=== PATIENT | female | born 1945 | race Caucasian/White ===

== ENCOUNTER 2022-09-16 12:49 | Outpatient (AMB) | payer MEDICARE, SELFPAY ==
--- NOTE | 2022-09-16 13:39 | MHC.AMDMED ---
Intake Intake Visit Reasons: DM2 Lead Press Operator Required: No Accompanied by: Spouse HPI Comprehensive Diabetes Asmnt General Diabetes type type 2 Most Recent Diabetes Results: No Data to Display Assessment & Plan Assessment & Plan (1) Diabetes mellitus: Code(s): E11.9 - Type 2 diabetes mellitus without complications Plan: Learning objectives: The patient was provided with verbal and written education on the following topics as outlined below. The patient met all learning objectives and was able to verbalize understanding and provide teach back of education topics discussed . The patient was provided with the opportunity to ask questions and all questions were answered. Patient Assessment Assess patient education level/literacy/barriers Patient questions/concerns, patient reports she had a stroke 2019, this is left her with some cognitive deficit which makes it harder for her to organized her daily life. She and her reports she frequently forgets to take medications, does not consistently check glucose levels. Was prescribed Mounjaro but has not started due to high co-pay. Currently has Annel 2 sensors but does not have reader. Could down download eliot on smart phone because patient did not know apple ID. What is Diabetes? Pathophysiology How the body produces and uses insulin Identify type of DM Risk factors Signs of Diabetes Brief overview of Diabetes Management Monitoring blood sugar Following a meal plan Regular exercise Maintaining a healthy weight Taking medication as needed Members of the care team (PCP, RN, MA, RD, CDE, electrical instrument repairer) Blood glucose monitoring When/how often to test Target blood sugar ranges Patient did not bring meter to today's visit Introduction to Nutrition Importance of healthy diet in managing DM Diet is personalized to individual preference Review patient?s regular diet/food preferences Who prepares meals/does food shopping/ Dining out?/ Barriers? How diet effects glucose Eating 3 balanced meals a day with small, healthy snacks between meals Review food groups Carbohydrates: What is a carbohydrate/Which food/food groups are considered carbohydrates Effect of carbohydrates on blood glucose Portion sizes Reading food labels Basic carb counting (if applicable per nursing assessment) Plate method Meal planning Recommendations: Follow plate method, consistent carbs and read nutritional labels. Smart Goal: Call electrical instrument repairer get prescription for freestyle Annel reader, and Mounjaro alternative Educational Materials: The patient was provided with the following written educational materials: Planning Healthy Meals Handout Patient Response to instructions: Comprehension of Instructions: Fair Readiness to make changes: Contemplation How confident they feel about making changes: fair Patient Instructions: Test blood sugar as directed; Fasting and 2hpp largest meal. Watch trends in results. Utilize results and to assess how food, physical activity and medications affect blood sugar results. Bring glucometer or CGM to next visit. Be knowledgeable about diabetes medication, its action, side effects, efficacy, toxicity, prescribed dosage, appropriate timing and frequency of administration, effect of missed and delayed doses and instructions for storage, travel and safety. Coding Level of Care Code Est Pt Level 1 (45693) Diagnoses Diabetes mellitus E11.9
== END 2022-09-16 14:12 | disposition home or self-care (01) ==
PROVIDERS: PCP Internal Medicine Medical Oncology; Referring Provider Internal Medicine Medical Oncology; Visit Provider Registered Nurse Diabetes Educator
DX: E11.9 Type 2 diabetes mellitus without complications (principal)

== ENCOUNTER → 2022-09-16 12:49 | Outpatient (BNVA) | payer MEDICARE, SELFPAY | PROVIDERS: Visit Provider Registered Nurse Diabetes Educator | DX: E11.9 Type 2 diabetes mellitus without complications (principal) | CPT/HCPCS: 99211 ==

== ENCOUNTER 2024-05-12 14:21 | Outpatient (REF) | payer MEDICARE, SELFPAY ==
--- NOTE | ~2024-05-12 | FL_ITS ---
EXAMINATION: Modified Barium Swallow CLINICAL INFORMATION: Dysphagia COMPARISON: None TECHNIQUE: Modified barium swallow was performed under lateral fluoroscopy with patient in standing position. Barium mixed with solids and liquids of different consistencies was administered by the speech pathologist. Examination was recorded in the fluoroscopy suite. FINDINGS: There was flash laryngeal penetration with thin liquids without glottic or subglottic aspiration. No significant pooling identified. FLUOROSCOPY TIME: 1 minute 33 seconds Number of Spot Images: N/A DOSE AREA PRODUCT: 961.6 uGy-m2 (microgray-meter squared) FL/FL Modified Barium Swallow IMPRESSION: Flash laryngeal penetration identified with thin liquids without glottic or subglottic aspiration. Please refer to the full speech pathologist report to follow. Electronically signed by: Kehinde Elias MD 05/12/2024 03:15 PM EDT
--- OUTSIDE RECORDS SUMMARY | 2024-05-12 17:16 | XMS_ITS ---
Author Organization Calvin Yousif III, MD Address [address] [place] [address] Care Team Providers Care Parachute Cushion Installer Name Role Phone Calvin Yousif Primary Care Provider Allergies Allergen (clinical drug ingredient) Drug/Non Drug Allergy documented on EMR Reaction Allergy Type Onset Date Status Penicillin Unknown Drug Allergy Active vancomycin Vancomycin HCl throat closes/itchy Drug Allergy Active clindamycin Clindamycin HCl Unknown Drug Allergy Active Reason For Referral Reason Consult and Treat Aspirating Saliva after Stroke Diagnosis 1 Difficulty swallowin g (R13.10) Referral Organization Calvin Yousif III, MD Referring Provider First Name Calvin Referring Provider Last Name Benja Referring Provider Speciality Internal M edicine Referred Provider [facility] er, Speech and Hearing Referred Provider Specialty Unknown General Notes DKalyn 05/10/2024 10:08:11 AM > Referral faxed with progress note Referral Priority Routine REASON FOR VISIT [facility] Weight loss program, Dementia, History of stroke, History of B12 deficiency, Diabetes mellitus, Sleep apnea Medications Medication SIG (Take, Route, Frequency, Duration) Notes Start Date End Date Status FreeStyle Lite - Check glucose Friday , friday, Friday Fasting 3 times a day 02/25/2020 Active Mounjaro 2.5 MG/0.5ML INJECT 1 PEN EVERY WEEK DIRECTED Subcutaneous Active Metoprolol Tartrate 25 MG TAKE 1 TABLET BY MOUTH TWICE A DAY WITH FOOD Active Vitamin D-[address] 25 MCG (1000 UT) 1 tablet Orally Once a day 11/19/2023 Active FreeStyle Lite Test - Check glucose , Friday, Friday In Vitro 3 times a day, Fasting 02/25/2020 Active buPROPion HCl ER (SR) 100 MG 1 tablet in the morning Orally Once a day 06/25/2021 Active Aspirin Adult Low Dose 81 MG 1 tablet Orally Once a day A ctive Vitamin B 12 100 MCG 1 tablet Orally Once a day Active Lisinopril 2.5 MG TAKE 1 TABLET BY GINO TH EVERY DAY Active Eliquis 5 MG TAKE 1 TABLET BY GINO TH TWICE A DAY Oral Active Jardiance 10 MG TAKE 1 TABLET BY GINO TH EVERY DAY Active Atorvastatin Calcium 80 MG TAKE 1 TABLET BY MOUTH EVERY DAY Active Social History Tobacco Use: Social History Observation Description Date Details (start date - stop date) Never Smoker NA - NA Sex Assigned At : Social History Observation Description Sex Assigned At Female Tobacco Use/Smoking Question Answer Notes Patient is a nonsmoker Additional Findings: Tobacco Non-User Aggressive non-smoker Problems Problem Type SNOMED Code ICD Code Onset Dates Problem Status W/U Status Risk Notes Problem Difficulty swallowing ([id number]) Difficulty swallowing (R13.10) Active confirmed This is been present since her stroke. A barium swallow and speech therapy will be considered . Vital Signs Temperature 98.2 degrees Fahrenheit 05/08/19 25 Blood pressure systolic 125 mm Hg 05/08/19 25 Blood pressure diastolic 67 mm Hg 025 Heart Rate 72 /min 05/07/2024 Height 62 in 05/07/2024 Weight 156 lbs 05/07/2024 BMI 28.53 kg/m2 05/07/2024 Encounters Encounter Location Date Provider Diagnosis Calvin Yousif III, MD [address] [place] [address] [address], [place] [id number] 05/07/2024 Calvin Yousif Vitamin B 12 deficiency E53.8 ; Dementia without behavioral disturbance, unspecified dementia type F03.90 ; Difficulty swallowing R13.10 ; Lactose intolerance E73.9 ; DJD (degenerative joint disease) M19.90 ; Embolic stroke involving cerebral artery I63.40 ; Overweight E66.3 ; Sleep apnea in adult G47.30 and Type 2 diabetes mellitus without complication, without long-term current use of insulin E11.9 Assessments Encounter Date Diagnosis (ICD Code) Assessment Notes Treatment Notes Treatment Clinical Notes 05/07/2024 Vitamin B 12 deficiency (ICD-10 - E53.8) She was continued on her vitamin B12 supplement.The B12 level on April 27, 2024 was 1010. 05/07/2024 Dementia without behavioral disturbance, unspecified dementia type (ICD-10 - F03.90) Her memory is stable. Her family says that she often refuses to take medication. She is currently declining to take her antidepressant. 05/07/2024 Difficulty swallowing (ICD-10 - R13.10) This is been present since her stroke. A barium swallow and speech therapy will be considered. 05/07/2024 Lactose intolerance (ICD-10 - E73.9) She will occasionally uses Lactaid. This problem is well controlled. She has not had a problem with abdominal distress or diarrhea or pain recently. She is avoiding lactose and dairy products. 05/07/2024 DJD (degenerative joint disease) (ICD-10 - M19.90) Her arthritis is monitor and assess mostly her hands and shoulders and Tylenol to relieve the pain with some success. 05/07/2024 Embolic stroke involving cerebral artery (ICD-10 - I63.40) Neurology followup has been arranged. She will continue on aspirin and clopidogrel. An echocardiogram has been scheduled. Close followup was arranged. 05/07/2024 Overweight (ICD-10 - E66.3) She has gained 2 pounds. She will resume the morning Gyro when it is available from the pharmacy. 05/07/2024 Sleep apnea in adult (ICD-10 - G47.30) At the reported request of neurology. She will be reevaluated for CPAP. 05/07/2024 Type 2 diabetes mellitus without complication, without long-term current use of insulin (ICD-10 - E11.9) Her diabetes is controlled with a hemoglobin A1c of 6.7. She has gained 2 pounds and we discussed weight reduction. We reviewed the elements of a diabetic weight loss diet. We made a plan to lose weight at a rate of one half of a pound per week. Plan Of Treatment Medication Medication Name Sig Start Date Stop Date Notes FreeStyle Lite - Check glucose Friday , friday, Friday Fasting 3 times a day 02/25/2020 Mounjaro 2.5 MG/0.5ML INJECT 1 PEN EVERY WEEK DIRECTED Subcutaneous Metoprolol Tartrate 25 MG TAKE 1 TABLET BY MOUTH TWICE A DAY WITH FOOD Vitamin D-[address] 25 MCG (1000 UT) 1 tablet Orally Once a day 11/19/2023 FreeStyle Lite Test - Check glucose , Friday, Friday In Vitro 3 times a day, Fasting 02/25/2020 buPROPion HCl ER (SR) 100 MG 1 tablet in the morning Orally Once a day 06/25/2021 Aspirin Adult Low Dose 81 MG 1 tablet Orally Once a day Vitamin B 12 100 MCG 1 tablet Orally Once a day Lisinopril 2.5 MG TAKE 1 TABLET BY GINO TH EVERY DAY Eliquis 5 MG TAKE 1 TABLET BY GINO TH TWICE A DAY Oral Jardiance 10 MG TAKE 1 TABLET BY GINO TH EVERY DAY Atorvastatin Calcium 80 MG TAKE 1 TABLET BY MOUTH EVERY DAY Pending Test Test Name Order Date XR BARIUM SWALLOW, MODIFIED VIDEO 2024 Referrals Referral Date Details 05/07/2024 05/07/2024, Consult and Treat Aspirating Saliva after Stroke, [facility] Next Appt Details Follow Up: 2 Months, Reason: OV Provider Name:Calvin Yousif, 06/09/2024 03:00:00 PM, [address] [place] [address] [address], [place], [id number], Provider Name:Calvin Yousif, 11/22/2024 04:00:00 PM, [address] [place] [address] [address], [place], [id number], Progress Notes * Faina MORALES ADOB: [birth year] (78 yo F)Acc No.[id number]:05/07/2024 Progress Notes Patient:?Jacklyn MORALESricjorge Seaman Provider:?Calvin Yousif MD :1945???Age:78 Y???Sex:Female D ate:05/07/2024 Address:[address], [place], [id number] Subjective: * Chief Complaints: * ???Mounjaro Weight loss prog ramDementiaHistory of strokeHistory of B12 deficiencyDiabetes mellitusSleep apnea * HPI: ???COVID-19 Screening:?She returns to review multiple medical issues.? She has been taking Mounjaro for weight loss.? The pharmacy is currently unable to fill the prescription.? She has gained 2 pounds since her last visit.? Her fasting glucose levels the last 2 days were 1100 and 1:15.? She denies any pain shortness of breath or dysuria.? She was awake and alert and happy today. There was no neurological deficit.? Her dementia is unchanged.? She continues living at home with her .We will continue to see her monthly intervals. ?Questions?Have you had any new onset fever, chills, cough, congestion, sore throat, shortness of breath, muscle aches??No * ROS:?General/Constitutional:?pain?only normal aches and pains.?Chills?denies.?Fatigue?admits.?Fever?denies.?ENT:?Decreased hearing?denies.?Respiratory:?Cough?denies.?Cardiovascular:?Chest pain with exertion?denies.?Dyspnea on exertion?denies.?Shortness of breath?denies.?Gastrointestinal:?Constipation?occasional.?Decreased appetite?denies.?Diarrhea?denies.?Heartburn?occasional.?Nausea?denies.?Rectal bleeding?denies.?Vomiting?denies.?Hematology:?bruising?denies.?petechiae?denies.?Swollen glands?none have been noted.?Genitourinary:?Frequent urination?denies.?Musculoskeletal:?Muscle aches?denies.?Painful joints?denies.?Sciatica?denies.?Weakness?denies.?Skin:?Itching?denies.?Rash?denies.?Skin lesion(s)?denies.?Neurologic:?Difficulty speaking?denies.?Dizziness?denies.?Headache?denies.?Low back pain?denies.?Psychiatric:?Depressed mood?denies.? * Medical History:? * Surgical History:?lumbar dis c surgery 1994appendectomy age 5 colonoscopy, Esme Hooks right eye cataract 11/2021Lumpectomy left breast Left eye Cataract 04/2022No history * Hospitalization/Major Diagno stic Procedure:?CVA 02/2019No history * Family History:?Father: dece ased 76 yrs, prostate cancer, diagnosed with Cancer.?Mother: alive 87 yrs, hypertension, hyperlipidemia,back problems, stroke, diagnosed with HTN, Hyperlipidemia.?2 brother(s) , 1 sister(s) - healthy. 1 son(s) , 1 daughter(s) - healthy. .? A son is diabetic. * Social History:?Tobacco Use:?Tobacco Use/Smoking?Patient is a?nonsmoker ?Additional Findings: Tobacco Non-User?Aggressive non-smoker ???She is with children and is retired. She was born in [place], [place]. Her son is Armaan. Her daughter Ruth teaches kindergarten. * Medications:?TakingAtorvasta tin Calcium 80 MG Tablet TAKE 1 TABLET BY MOUTH EVERY DAY Jardiance 10 MG Tablet TAKE 1 TABLET BY MOUTH EVERY DAY Lisinopril 2.5 MG Tablet TAKE 1 TABLET BY MOUTH EVERY DAY Vitamin B 12 100 MCG Lozenge 1 tablet Orally Once a day Aspirin Adult Low Dose 81 MG Tablet Delayed Release 1 tablet Orally Once a day buPROPion HCl ER (SR) 100 MG Tablet Extended Release 12 Hour 1 tablet in the morning Orally Once a day Metoprolol Tartrate 25 MG Tablet TAKE 1 TABLET BY MOUTH TWICE A DAY WITH FOOD Mounjaro 2.5 MG/0.5ML Solution Pen-injector INJECT 1 PEN EVERY WEEK DIRECTED Subcutaneous FreeStyle Lite - Device Check glucose Friday, friday, Friday Fasting 3 times a day FreeStyle Lite Test - Strip Check glucose Friday, Friday, Friday In Vitro 3 times a day, Fasting Vitamin D-[address] 25 MCG (1000 UT) Tablet 1 tablet Orally Once a day Eliquis 5 MG Tablet TAKE 1 TABLET BY MOUTH TWICE A DAY Oral Medication List reviewed and reconciled with the patientTaking Atorvastatin Calcium 80 MG Tablet TAKE 1 TABLET BY MOUTH EVERY DAY Taking Jardiance 10 MG Tablet TAKE 1 TABLET BY MOUTH EVERY DAY Taking Lisinopril 2.5 MG Tablet TAKE 1 TABLET BY MOUTH EVERY DAY Taking Vitamin B 12 100 MCG Lozenge 1 tablet Orally Once a day Taking Aspirin Adult Low Dose 81 MG Tablet Delayed Release 1 tablet Orally Once a day Taking buPROPion HCl ER (SR) 100 MG Tablet Extended Release 12 Hour 1 tablet in the morning Orally Once a day Taking Metoprolol Tartrate 25 MG Tablet TAKE 1 TABLET BY MOUTH TWICE A DAY WITH FOOD Taking Mounjaro 2.5 MG/0.5ML Solution Pen-injector INJECT 1 PEN EVERY WEEK DIRECTED Subcutaneous Taking FreeStyle Lite - Device Check glucose Friday, friday, Friday Fasting 3 times a day Taking FreeStyle Lite Test - Strip Check glucose Friday, Friday, Friday In Vitro 3 times a day, Fasting Taking Vitamin D-[address] 25 MCG (1000 UT) Tablet 1 tablet Orally Once a day Taking Eliquis 5 MG Tablet TAKE 1 TABLET BY MOUTH TWICE A DAY Oral Medication List reviewed and reconciled with the patient * Allergies:?Vancomycin HCl: t hroat closes/itchyClindamycin HClPenicillinno[Allergies Verified] Objective: * Vitals:?Ht: 62, Wt:156, BMI: 28.53, BP:125/67, HR:72, Temp:98.2, Ht-cm: 157.48, Wt-k.76. * Examination: ???General Examination: ?GENERAL APPEARANCE:?pleasant, well nourished, well developed, in no acute distress, calm and relaxed, overweight, woman.?HEAD:?atraumatic, normocephalic.?EYES:?eomi, perrla, anicteric, conjugate.?EARS:?normal.?NOSE:?septum intact.?ORAL CAVITY:?normal, unremarkable.?NECK/THYROID:?no jugular venous distention, no carotid bruit, thyroid normal.?LYMPH NODES:?no enlarged lymph nodes,spleen normal.?SKIN:?no suspicious lesions, anicteric.?HEART:?no clicks, gallops, murmurs, or rubs, regular rhythm, S1, S2 normal, no s3, or vascular bruits.?LUNGS:?clear to auscultation .?BREASTS:?Not examined.?ABDOMEN:?bowel sounds normal, no ascites, no organomegaly, no mass, overweight.?RECTAL EXAM:?not examined.?MUSCULOSKELETAL:?extremities unremarkable, no clubbing, cyanosis or edema.?PERIPHERAL PULSES:?normal.?NEUROLOGIC:?alert and oriented, cranial nerves 2-12 grossly intact, deep tendon reflexes 2+ symmetrical, motor strength normal upper and lower extremities, sensory exam intact, Moderate memory loss.?PSYCH:?alert, oriented, Pleasant,.? Assessment: * Assessment: 1.?Dementia without behavior al disturbance, unspecified dementia type - F03.90 (Primary)???Notes :Her memory is stable. Her family says that she often refuses to take medication. She is currently declining to take her antidepressant.???2.?Vitamin B 12 deficiency - E53.8???Notes :She was continued on her vitamin B12 supplement.The B12 level on April 27, 2024 was 1010.???3.?Difficulty swallowing - R13.10???Notes :This is been present since her stroke.? A barium swallow and speech therapy will be considered.???4.?Lactose intolerance - E73.9???Notes :She will occasionally uses Lactaid. This problem is well controlled. She has not had a problem with abdominal distress or diarrhea or pain recently. She is avoiding lactose and dairy products.???5.?DJD (degenerative joint disease) - M19.90???Notes :Her arthritis is monitor and assess mostly her hands and shoulders and Tylenol to relieve the pain with some success.???6.?Embolic stroke involving cerebral artery - I63.40???Notes :Neurology followup has been arranged. She will continue on aspirin and clopidogrel. An echocardiogram has been scheduled. Close followup was arranged.???7.?Overweight - E66.3???Notes :She has gained 2 pounds.? She will resume the morning Gyro when it is available from the pharmacy.???8.?Sleep apnea in adult - G47.30???Notes :At the reported request of neurology. She will be reevaluated for CPAP.???9.?Type 2 diabetes mellitus without complication, without long-term current use of insulin - E11.9???Notes :Her diabetes is controlled with a hemoglobin A1c of 6.7. She has gained 2 pounds and we discussed weight reduction. We reviewed the elements of a diabetic weight loss diet. We made a plan to lose weight at a rate of one half of a pound per week.??? Plan: * Treatment: 2.?Vitamin B 12 deficiency? Continue Atorvastatin Calcium Tablet, 80 MG, TAKE 1 TABLET BY MOUTH EVERY DAY;?Continue Jardiance Tablet, 10 MG, TAKE 1 TABLET BY MOUTH EVERY DAY;?Continue Lisinopril Tablet, 2.5 MG, TAKE 1 TABLET BY MOUTH EVERY DAY;?Continue Vitamin B 12 Lozenge, 100 MCG, 1 tablet, Orally, Once a day;?Continue Aspirin Adult Low Dose Tablet Delayed Release, 81 MG, 1 tablet, Orally, Once a day; Continue buPROPion HCl ER (SR) Tablet Extended Release 12 Hour, 100 MG, 1 tablet in the morning, Orally, Once a day;?Continue Metoprolol Tartrate Tablet, 25 MG, TAKE 1 TABLET BY MOUTH TWICE A DAY WITH FOOD;?Continue Mounjaro Solution Pen-injector, 2.5 MG/0.5ML, INJECT 1 PEN EVERY WEEK DIRECTED, Subcutaneous;?Continue FreeStyle Lite Device, -, Check glucose Friday, friday, Friday Fasting, 3 times a day;?Continue FreeStyle Lite Test Strip, -, Check glucose Friday, Friday, Friday, In Vitro, 3 times a day, Fasting.?? 3.?Difficulty swallowing?Imaging: XR BARIUM SWALLOW, MODIFIED VIDEO? Referral To:[facility]??Unknown ?Reason:Consult and Treat Aspirating Saliva after Stroke 4.?Others? Continue Vitamin D-[address] Tablet, 25 MCG (1000 UT), 1 tablet, Orally, Once a day.?? * Procedure Codes:? * Preventive Medicine:? ??Counseling:?Care goal follow-up plan:?Counseling for abnormal BMI given?Yes ?Above Normal BMI Follow-up?Dietary management education, guidance, and counseling, Dietary needs education ??DM Care Plan:?Patient Lifestyle Goals?Patient wants to be able to manage diabetes without too much effort.?Treatment Goals?Blood Sugars less than < 115, HbA1C < 7.0.?Barriers?no barriers.?Self-Managment Goals?Take blood sugars twice daily and keep a log. Bring log in to next appointment, Increase exercise to 3 times a week for 30 mins.? * Follow Up:?2 Months (Reason: OV) * Images: * Sign off status: Completed true * Provider:?Calvin Yousif MD Date:?04/18 Generated for Yanna campbell/Olivia/Sebasitting on:?05/12/2024 05:16 PM EDT History and Physical Notes * HPI (History of Present Illness) Category Sub-Category Detail Notes COVID-19 Screening Questions Have you had any new onset fever, chills, cough, congestion, sore throat, shortness of breath, muscle aches?: No Examination Category Sub-Category Detail Notes General Examination GENERAL APPEARANCE: pleasant , well nourished, well developed, in no acute distress, calm and relaxed, overweight, woman HEAD: atraumatic, normocep halic EYES: eomi, perrla, anicte mali, conjugate EARS: normal NOSE: septum intact NECK/THYROID: no jugular venous di stention, no carotid bruit, thyroid normal HEART: no clicks, gallops, murmurs, or rubs, regular rhythm, S1, S2 normal, no s3, or vascular bruits LUNGS: clear to auscultatio n ABDOMEN: bowel sounds normal, no ascites, no organomegaly, no mass, overweight NEUROLOGIC: alert and oriented, cranial nerves 2-12 grossly intact, deep tendon reflexes 2+ symmetrical, motor strength normal upper and lower extremities, sensory exam intact, Moderate memory loss SKIN: no suspicious lesion s, anicteric PERIPHERAL PULSES: normal BREASTS: Not examined MUSCULOSKELETAL: extremities unremark able, no clubbing, cyanosis or edema LYMPH NODES: no enlarged lymph no mercy,spleen normal RECTAL EXAM: not examined PSYCH: alert, oriented, Ple asant, ORAL CAVITY: normal, unremarkable Consultation Request Notes Referral Date Referring Provider Referred Provider Not dominic 05/07/2024 Calvin Yousif [facility], [facility] Consult and Treat Aspirating Saliva after Stroke
--- OUTSIDE RECORDS SUMMARY | 2024-05-12 17:16 | XMS_ITS ---
Author Organization Calvin Yousif III, MD Address [address] [place] [address] Care Team Providers Care Technology Recruiter Name Role Phone Calvin Yousif Primary Care Provider Allergies Allergen (clinical drug ingredient) Drug/Non Drug Allergy documented on EMR Reaction Allergy Type Onset Date Status Penicillin Unknown Drug Allergy Active vancomycin Vancomycin HCl throat closes/itchy Drug Allergy Active clindamycin Clindamycin HCl Unknown Drug Allergy Active REASON FOR VISIT Sleep apnea, Mounjaro weight loss progra, Recent strokes, Vitamin B12 deficiency, Dementia, Diabetes Medications Medication SIG (Take, Route, Frequency, Duration) Notes Start Date End Date Status Jardiance 10 MG TAKE 1 TABLET BY GINO TH EVERY DAY Active Lisinopril 2.5 MG TAKE 1 TABLET BY GINO TH EVERY DAY Active Vitamin B 12 100 MCG 1 tablet Orally Once a day Active Aspirin Adult Low Dose 81 MG 1 tablet Orally Once a day A ctive buPROPion HCl ER (SR) 100 MG 1 tablet in the morning Orally Once a day 06/25/2021 Active FreeStyle Lite - Check glucose Friday , friday, Friday Fasting 3 times a day 02/25/2020 Active FreeStyle Lite Test - Check glucose , Friday, Friday In Vitro 3 times a day, Fasting 02/25/2020 Active Vitamin D-[address] 25 MCG (1000 UT) 1 tablet Orally Once a day 11/19/2023 Active Atorvastatin Calcium 80 MG TAKE 1 TABLET BY MOUTH EVERY DAY Active Mounjaro 2.5 MG/0.5ML INJECT 1 PEN EVERY WEEK DIRECTED Subcutaneous Active Metoprolol Tartrate 25 MG TAKE 1 TABLET BY MOUTH TWICE A DAY WITH FOOD Active Social History Tobacco Use: Social History Observation Description Date Details (start date - stop date) Never Smoker NA - NA Sex Assigned At : Social History Observation Description Sex Assigned At Female Tobacco Use/Smoking Question Answer Notes Patient is a nonsmoker Additional Findings: Tobacco Non-User Aggressive non-smoker Vital Signs Temperature 98.6 degrees Fahrenheit 03/26/19 25 Blood pressure systolic 129 mm Hg 03/26/19 25 Blood pressure diastolic 68 mm Hg 025 Heart Rate 75 /min 03/26/2024 Height 62 in 03/26/2024 Weight 154 lbs 03/26/2024 BMI 28.16 kg/m2 03/26/2024 Encounters Encounter Location Date Provider Diagnosis Calvin Yousif III, MD [address] [place] [address] [place] [address] 03/26/2024 Calvin Yousif Vitamin B 12 deficie ncy E53.8 ; Cerebrovascular accident (CVA), unspecified mechanism I63.9 ; Type 2 diabetes mellitus without complication, without long-term current use of insulin E11.9 ; Dementia without behavioral disturbance, unspecified dementia type F03.90 ; Lactose intolerance E73.9 ; Eczema L30.9 and Sleep apnea in adult G47.30 Assessments Encounter Date Diagnosis (ICD Code) Assessment Notes Treat ment Notes Treatment Clinical Notes 03/26/2024 Vitamin B 12 deficiency (ICD-10 - E53.8) She was continued on her vitamin B12 supplement. 03/26/2024 Cerebrovascular accident (CVA), unspecified mechanism (ICD-10 - I63.9) Her only neurological deficits today are recent memory recovered from a small stroke well. 03/26/2024 Type 2 diabetes mellitus without complication, without long-term current use of insulin (ICD-10 - E11.9) Her diabetes is controlled with a hemoglobin A1c of 6.7. She has gained 9 pounds and we discussed weight reduction. We reviewed the elements of a diabetic weight loss diet. We made a plan to lose weight at a rate of one half of a pound per week. 03/26/2024 Dementia without behavioral disturbance, unspecified dementia type (ICD-10 - F03.90) Her memory is stable. Her family says that she often refuses to take medication. She is currently declining to take her antidepressant. 03/26/2024 Lactose intolerance (ICD-10 - E73.9) She will occasionally uses Lactaid. This problem is well controlled. She has not had a problem with abdominal distress or diarrhea or pain recently. She is avoiding lactose and dairy products. 03/26/2024 Eczema (ICD-10 - L30.9) She has a few spots of eczema but it is only a minor problem at this point. 03/26/2024 Sleep apnea in adult (ICD-10 - G47.30) At the reported request of neurology. She will be reevaluated for CPAP. Plan Of Treatment Medication Medication Name Sig Start Date Stop Date Notes Jardiance 10 MG TAKE 1 TABLET BY GINO TH EVERY DAY Lisinopril 2.5 MG TAKE 1 TABLET BY GINO TH EVERY DAY Vitamin B 12 100 MCG 1 tablet Orally Once a day Aspirin Adult Low Dose 81 MG 1 tablet Orally Once a day buPROPion HCl ER (SR) 100 MG 1 tablet in the morning Orally Once a day 06/25/2021 FreeStyle Lite - Check glucose Friday , friday, Friday Fasting 3 times a day 02/25/2020 FreeStyle Lite Test - Check glucose , Friday, Friday In Vitro 3 times a day, Fasting 02/25/2020 Vitamin D-[address] 25 MCG (1000 UT) 1 tablet Orally Once a day 11/19/2023 Atorvastatin Calcium 80 MG TAKE 1 TABLET BY MOUTH EVERY DAY Mounjaro 2.5 MG/0.5ML INJECT 1 PEN EVERY WEEK DIRECTED Subcutaneous Metoprolol Tartrate 25 MG TAKE 1 TABLET BY MOUTH TWICE A DAY WITH FOOD Pending Test Test Name Order Date PROFILE, FASTING (COMPREHENSIVE METABOLI C) 03/26/2024 CBC WITH AUTO DIFF 03/26/2024 Lipid Panel 03/26/2024 Vitamin B12 03/26/2024 Hemoglobin A1c 03/26/2024 Next Appt Details Follow Up: 6 Weeks, four to six weeks, Reason: OV, Routine follow-up Provider Name:Calvin Ceronne, 06/09/2024 03:00:00 PM, [address] [place] [address] [address], [place], [address], Provider Name:Calvin Ceronne, 11/22/2024 04:00:00 PM, [address] [place] [address] [address], [place], [address], Progress Notes * Faina MORALES ADOB: [birth year] (78 yo F)Acc No.[id number]:03/26/2024 Progress Notes Patient:?Faina MORALES Provider:?Calvin Yousif MD :1945???Age:78 Y???Sex:Female D ate:03/26/2024 Address:[address] [place] [address] [facility] Subjective: * Chief Complaints: * ???Sleep apneaMounjaro weigh t loss prograRecent strokesVitamin B12 deficiencyDementiaDiabetes * HPI: ???COVID-19 Screening:?Questions?Have you had any new onset fever, chills, cough, congestion, sore throat, shortness of breath, muscle aches??No ???:? The patient, an 78-year-old female, has been experiencing difficulty in obtaining her medication, Trulicity, for the past three to four weeks due to supply chain issues. She also reported a fall on the of the previous month, which resulted in pain in her knee and shoulder. The fall was attributed to her reaching for something and slipping between the rug and the hardwood floor. The patient also reported having sleep apnea and uses a CPAP machine. She has been experiencing fatigue and often sleeps during the day. The patient's memory seems to fluctuate, with some days being sharp and others being less so. The patient also had a stroke in February, which initially affected her speech and later caused her mouth to drop. * ROS:?General/Constitutional:?Admits?pain,?only normal aches and pains.?Chills?denies.?Fatigue?admits.?Fever?denies.?ENT:?Decreased hearing?mild.?Respiratory:?Cough?denies.?Cardiovascular:?Chest pain with exertion?denies.?Dyspnea on exertion?denies.?Shortness of breath?denies.?Gastrointestinal:?Constipation?occasional.?Decreased appetite?denies.?Diarrhea?denies.?Heartburn?denies.?Nausea?denies.?Rectal bleeding?denies.?Vomiting?denies.?Hematology:?bruising?denies.?petechiae?denies.?Swollen glands?none have been noted.?Genitourinary:?Frequent urination?at night.?Musculoskeletal:?Muscle aches?denies.?Painful joints?denies.?Sciatica?denies.?Weakness?denies.?Skin:?Itching?denies.?Rash?denies.?Skin lesion(s)?denies.?Neurologic:?Difficulty speaking?denies.?Dizziness?denies.?Headache?denies.?Low back pain?denies.?Psychiatric:?Depressed mood?denies.? * Medical History:? * Surgical History:?lumbar dis c surgery 1995appendectomy age 5 zbigniew, Esme Hooks right eye cataract 11/2021Lumpectomy left breast Left eye Cataract 04/2022No history * Hospitalization/Major Diagno stic Procedure:?CVA 02/2019No history * Family History:?Father: dece ased 76 yrs, prostate cancer, diagnosed with Cancer.?Mother: alive 87 yrs, hypertension, hyperlipidemia,back problems, stroke, diagnosed with Hyperlipidemia, HTN.?2 brother(s) , 1 sister(s) - healthy. 1 son(s) , 1 daughter(s) - healthy. .? A son is diabetic. * Social History:?Tobacco Use:?Tobacco Use/Smoking?Patient is a?nonsmoker ?Additional Findings: Tobacco Non-User?Aggressive non-smoker ???She is with children and is retired. She was born in [place], [place]. Her son is Armaan. Her [...] Tablet 1 tablet Orally Once a day Medication List reviewed and reconciled with the [...] Tablet 1 tablet Orally Once a day Medication List reviewed and reconciled with the patient * Allergies:?Vancomycin HCl: t hroat closes/itchyClindamycin HClPenicillinno[Allergies Verified] Objective: * Vitals:?Ht: 62, Wt:154, BMI: 28.16, BP:129/68, HR:75, Temp:98.6, Ht-cm: 157.48, Wt-k.85. * Examination: ???General Examination: ?GENERAL APPEARANCE:?pleasant, well nourished, well developed, in no acute distress, calm and relaxed.?HEAD:?atraumatic, normocephalic.?EYES:?eomi, perrla, anicteric, conjugate.?EARS:?normal.?NOSE:?septum intact.?ORAL CAVITY:?normal, unremarkable.?NECK/THYROID:?no jugular venous distention, no carotid bruit, thyroid normal.?LYMPH NODES:?no enlarged lymph nodes,spleen normal.?SKIN:?no suspicious lesions, anicteric.?HEART:?no clicks, gallops, murmurs, or rubs, regular rhythm, S1, S2 normal, no s3, or vascular bruits.?LUNGS:?clear to auscultation .?BREASTS:?Not examined.?ABDOMEN:?bowel sounds normal, no ascites, no organomegaly, no mass.?RECTAL EXAM:?not examined.?MUSCULOSKELETAL:?extremities unremarkable, no clubbing, cyanosis or edema.?PERIPHERAL PULSES:?normal.?NEUROLOGIC:?alert and oriented, cranial nerves 2-12 grossly intact, deep tendon reflexes 2+ symmetrical, motor strength normal upper and lower extremities, sensory exam intact, Moderate memory loss, ambulatory, speech clear.?PSYCH:?alert, oriented to person and place.? Assessment: * Assessment: 1.?Cerebrovascular accident (CVA), unspecified mechanism - I63.9 (Primary)???Notes :Her only neurological deficits today are recent memory recovered from a small stroke well.???2.?Vitamin B 12 deficiency - E53.8???Notes :She was continued on her vitamin B12 supplement.???3.?Type 2 diabetes mellitus without complication, without long-term current use of insulin - E11.9???Notes :Her diabetes is controlled with a hemoglobin A1c of 6.7. She has gained 9 pounds and we discussed weight reduction. We reviewed the elements of a diabetic weight loss diet. We made a plan to lose weight at a rate of one half of a pound per week.???4.?Dementia without behavioral disturbance, unspecified dementia type - F03.90???Notes :Her memory is stable. Her family says that she often refuses to take medication. She is currently declining to take her antidepressant.???5.?Lactose intolerance - E73.9???Notes :She will occasionally uses Lactaid. This problem is well controlled. She has not had a problem with abdominal distress or diarrhea or pain recently. She is avoiding lactose and dairy products.???6.?Eczema - L30.9???Notes :She has a few spots of eczema but it is only a minor problem at this point.???7.?Sleep apnea in adult - G47.30???Notes :At the reported request of neurology. She will be reevaluated for CPAP.??? Plan: * Treatment: 2.?Type 2 diabetes mellitus without complication, without long-term current use of insulin?LAB: PROFILE, FASTING (COMPREHENSIVE METABOLIC) ?LAB: CBC WITH AUTO DIFF ?LAB: Lipid Panel ?LAB: Vitamin B12 ?LAB: Hemoglobin A1c 3.?Others? Continue Vitamin D-[address] Tablet, 25 MCG (1000 UT), 1 tablet, Orally, Once a day.?? * Procedure Codes:? * Preventive Medicine:? ??Counseling:?Care goal follow-up plan:?Counseling for abnormal BMI given?Yes ?Above Normal BMI Follow-up?Dietary management education, guidance, and counseling, Dietary needs education ??DM Care Plan:?Patient Lifestyle Goals?Patient wants to be able to manage diabetes without too much effort.?Treatment Goals?HbA1C < 7.0, Blood Sugars less than < 115.?Barriers?no barriers.?Self-Managment Goals?Work on weight loss, with a goal of losing 1 lb per week.? * Follow Up:?6 Weeks, four to six weeks (Reason: OV, Routine follow-up) * Images: * Sign off status: Completed true * Provider:?Calvin Yousif MD Date:?08/2024 Generated for Yanna campbell/Olivia/Sebasitting on:?05/12/2024 05:16 PM [...] developed, in no acute distress, calm and relaxed HEAD: atraumatic, normocep halic EYES: eomi, perrla, anicte mali, conjugate EARS: normal NOSE: septum intact NECK/THYROID: no jugular venous di stention, no carotid bruit, thyroid normal HEART: no clicks, gallops, murmurs, or rubs, regular rhythm, S1, S2 normal, no s3, or vascular bruits LUNGS: clear to auscultatio n ABDOMEN: bowel sounds normal, no ascites, no organomegaly, no mass NEUROLOGIC: alert and oriented, cranial nerves 2-12 grossly intact, deep tendon reflexes 2+ symmetrical, motor strength normal upper and lower extremities, sensory exam intact, Moderate memory loss, ambulatory, speech clear SKIN: no suspicious lesion s, anicteric PERIPHERAL PULSES: normal BREASTS: Not examined MUSCULOSKELETAL: extremities unremark able, no clubbing, cyanosis or edema LYMPH NODES: no enlarged lymph no mercy,spleen normal RECTAL EXAM: not examined PSYCH: alert, oriented to p erson and place ORAL CAVITY: normal, unremarkable
--- OUTSIDE RECORDS SUMMARY | 2024-05-12 17:16 | XMS_ITS | Continuity of Care Document ---
Author Organization [facility] [address] [place] [address] Phone [phone] Care Team Providers Care Personal Care Attendant Name Role Phone Aman Yousif M.D. Care Team Information Receive r [phone] Problems Active Problems Provider Date Carcinoma in situ of left breast Tj benson M.D. Onset: 01/01/2022 Dementia Tj Atkins M.D. Onset: 1 03/03/2021 Primary lactose intolerance Estelita Ponce Onset: 01/01/2022 Hyperlipidemia Tj Atkins M.D. Onset: 1 03/03/2021 Type 2 diabetes mellitus Tj Atkins M.D. Onset: 06/06/2022 Social History Type Date Description Comments Sex Unknown Tobacco Use Start: Unknown Never Smoked Cigarettes Smoking Status Reviewed: 09/06/22 Never Smoked Cigaret alex ETOH Use Denies alcohol use Allergies and adverse reactions Active Allergies Criticality Reaction Severity Comments Date Penicillin Unable to assess criticality 01/01/2022 Vancomycin Unable to assess criticality 01/01/2022 Clindamycin Unable to assess criticality 01/01/2022 Medications Active Medications SIG Qnty Indications Order ing Provider Date Mounjaro2.5mg/0.5ML Solution Pen-Inject Inject1 Injection Every Week as Directed Dx: E11.9 2units E11.9 Tj Atkins M.D. 06/03/2023 [id number] Tablets 1 by mouth every day 90tabs Tj Atkins M.D. 01/24/2023 Lisinopril2.5mg Tablets Take 1 Tablet By Mouth Every Day Aman Yousif M.D. Atorvastatin [id number] Tablets Take 1 Tablet By Mouth Every Day For 30 Days Aman Yousif M.D. Metoprolol [id number] Tablets Take 1 Tablet By Mouth Twice A Day With Food Aman Yousif M.D. Vital Signs Date Vital Result Comment 2023 2:48pm BP Systolic 130 mmHg BP Diastolic 80 mmHg Heart Rate 72 /min Height 61 inches 5'1 Weight 156.00 lb BMI (Body Mass Index) 29.5 kg/m2 Results Test Acquired Date Facility Test Result H/L Range N ote Glucose Fingerstick 2023 Inhouse Glucose Fingerstick 107 Hemoglobin A1c 09/02/2023 Inhouse Hemoglobin A1c 5.8% Glucose Fingerstick 09/02/2023 Inhouse Glucose Fingerstick 122 Hemoglobin A1c 06/03/2023 Inhouse Hemoglobin A1c 5.8% Glucose Fingerstick 06/03/2023 Inhouse Glucose Fingerstick 109 Glucose Fingerstick 01/24/2023 Inhouse Glucose Fingerstick 136 Hemoglobin A1c 09/06/2022 Inhouse Hemoglobin A1c 10.0% Glucose Fingerstick 09/06/2022 Inhouse Glucose Fingerstick 271 Hemoglobin A1c 06/07/2022 Inhouse Hemoglobin A1c 9.4% Glucose Fingerstick 06/07/2022 Inhouse Glucose Fingerstick 197 Glucose Fingerstick 02/05/2022 Inhouse Glucose Fingerstick 71 Hemoglobin A1c 01/01/2022 Inhouse Hemoglobin A1c 7.5% Glucose Fingerstick 01/01/2022 Inhouse Glucose Fingerstick 139 Procedures Date Code Description Status 03/10/2024 NSHOWOFF No Show Office Visit Complet ed Medical Devices Description No Information Available Encounters Type Date Location Provider Dx Diagnosis Office Visit 2023 2:30p Main Office Tj Atkins M.D. E11.9 Type 2 diabetes mellitus without complications Assessments Date Code Description Provider 2023 E11.9 Type 2 diabetes mellitus Becky Atkins M.D. Plan of Treatment Future Appointment(s):* 07/21/2024 1:30 pm - Tj Atkins M.D. at Main Office 09/02/2023 - Tj Atkins M.D.* E11.9 Type 2 diabetes mellitus Functional Status Description No Information Available Mental Status Description No Information Available Referrals Refer to Dr Reason for Referral Status Appt Bill e [facility] DIABETIC TEACHING Closed 06/06/2022 [phone]
--- OUTSIDE RECORDS SUMMARY | 2024-05-12 17:17 | XMS_ITS ---
Author Organization Calvin Yousif III, MD Address [address] [place] [address] Care Team Providers Care Subeditor Name Role Phone Calvin Yousif Primary Care Provider Allergies Allergen (clinical drug ingredient) Drug/Non Drug Allergy documented on EMR Reaction Allergy Type Onset Date Status Penicillin Unknown Drug Allergy Active vancomycin Vancomycin HCl throat closes/itchy Drug Allergy Active clindamycin Clindamycin HCl Unknown Drug Allergy Active REASON FOR VISIT Mild gastroenteritis, Recent embolic stroke, Mild dementia, Vitamin B12 deficiency, Diabetes, Hyperlipidemia, Sleep apnea Medications Medication SIG (Take, Route, Frequency, Duration) Notes Start Date End Date Status Vitamin D-[address] 25 MCG (1000 UT) 1 tablet Orally Once a day 11/19/2023 Active FreeStyle Lite Test - Check glucose , Friday, Friday In Vitro 3 times a day, Fasting 02/25/2020 Active FreeStyle Lite - Check glucose Friday , friday, Friday Fasting 3 times a day 02/25/2020 Active Mounjaro 2.5 MG/0.5ML INJECT 1 PEN EVERY WEEK DIRECTED Subcutaneous Active Metoprolol Tartrate 25 MG TAKE 1 TABLET BY MOUTH TWICE A DAY WITH FOOD Active Jardiance 10 MG TAKE 1 TABLET BY GINO TH EVERY DAY Active buPROPion HCl ER (SR) 100 MG 1 tablet in the morning Orally Once a day 06/25/2021 Active Aspirin Adult Low Dose 81 MG 1 tablet Orally Once a day A ctive Vitamin B 12 100 MCG 1 tablet Orally Once a day Active Lisinopril 2.5 MG TAKE 1 TABLET BY IGNO TH EVERY DAY Active Atorvastatin Calcium 80 [...] Findings: Tobacco Non-User Aggressive non-smoker Vital Signs Height 62 in 03/10/2024 Weight 150 lbs 03/10/2024 BMI 27.43 kg/m2 03/10/2024 Encounters Encounter Location Date Provider Diagnosis Calvin Yousif III, MD [address] [place] [address] [place] [address] 03/10/2024 Calvin Yousif Vitamin B 12 deficie ncy E53.8 ; Cerebrovascular accident (CVA), unspecified mechanism I63.9 ; Type 2 diabetes mellitus without complication, without long-term current use of insulin E11.9 ; Lactose intolerance E73.9 ; Mixed hyperlipidemia E78.2 ; Sleep apnea in adult G47.30 ; Sinus arrhythmia I49.8 ; Overweight E66.3 and Viral gastroenteritis A08.4 Assessments Encounter Date Diagnosis (ICD Code) Assessment Notes Treat ment Notes Treatment Clinical Notes 03/10/2024 Vitamin B 12 deficiency (ICD-10 - E53.8) She was continued on her vitamin B12 supplement. 03/10/2024 Cerebrovascular accident (CVA), unspecified mechanism (ICD-10 - I63.9) Her only neurological deficits today are recent memory recovered from a small stroke well. 03/10/2024 Type 2 diabetes mellitus without complication, without long-term current use of insulin (ICD-10 - E11.9) Her diabetes is controlled with a hemoglobin A1c of 6.7. She has gained 9 pounds and we discussed weight reduction. We reviewed the elements of a diabetic weight loss diet. We made a plan to lose weight at a rate of one half of a pound per week. 03/10/2024 Lactose intolerance (ICD-10 - E73.9) She will occasionally uses Lactaid. This problem is well controlled. She has not had a problem with abdominal distress or diarrhea or pain recently. She is avoiding lactose and dairy products. 03/10/2024 Mixed hyperlipidemia (ICD-10 - E78.2) Her lipids are currently stable and controlled. No change in her regimen was needed today. 03/10/2024 Sleep apnea in adult (ICD-10 - G47.30) At the reported request of neurology. She will be reevaluated for CPAP. 03/10/2024 Sinus arrhythmia (ICD-10 - I49.8) She has just finished a 7 day Holter monitor to see if she is having episodes of atrial fibrillation. We willl obtain a copy of the reading 1 is available. 03/10/2024 Overweight (ICD-10 - E66.3) Her weight has been stable since her last visit at 150 pounds. Her body mass index is 27. We made a plan to lose weight at a rate of one half of a pound per week through a diet restricted in fat calories sodium unconcentrated sweets. 03/10/2024 Viral gastroenteriti s (ICD-10 - A08.4) SheAnd her have both an low-grade fevers and nausea and vomiting and diarrhea. Recover from this. There is a local community outbreak norovirus. She is currently stable and able to hydrate. Plan Of Treatment Medication Medication Name Sig Start Date Stop Date Notes Vitamin D-[address] 25 MCG (1000 UT) 1 tablet Orally Once a day 11/19/2023 FreeStyle Lite Test - Check glucose , Friday, Friday In Vitro 3 times a day, Fasting 02/25/2020 FreeStyle Lite - Check glucose Friday , friday, Friday Fasting 3 times a day 02/25/2020 Mounjaro 2.5 MG/0.5ML INJECT 1 PEN EVERY WEEK DIRECTED Subcutaneous Metoprolol Tartrate 25 MG TAKE 1 TABLET BY MOUTH TWICE A DAY WITH FOOD Jardiance 10 MG TAKE 1 TABLET BY GINO TH EVERY DAY buPROPion HCl ER (SR) 100 MG 1 tablet in the morning Orally Once a day 06/25/2021 Aspirin Adult Low Dose 81 MG 1 tablet Orally Once a day Vitamin B 12 100 MCG 1 tablet Orally Once a day Lisinopril 2.5 MG TAKE 1 TABLET BY GINO TH EVERY DAY Atorvastatin Calcium 80 MG TAKE 1 TABLET BY MOUTH EVERY DAY Next Appt Details Follow Up: 4 Weeks, Reason: ov Provider Name:Calvin Yousif, 06/09/2024 03:00:00 PM, [address] [place] [address] [address], [place], [address], Provider Name:Calvin Yuosif, 11/22/2024 04:00:00 PM, [address] [place] [address] [address], [place], [address], Progress Notes * Faina MORALES ADOB: [birth year] (78 yo F)Acc No.[id number]:03/10/2024 Patient:?Jacklyn MORALESgustavo Seaman Provider:?Calvin Yousif MD :1945???Age:78 Y???Sex:Female D ate:03/10/2024 [address] [address] Subjective: * Chief Complaints: * ???Mild gastroenteritisRecen t embolic strokeMild dementiaVitamin B12 deficiencyDiabetesHyperlipidemiaSleep apnea * HPI: ???:?Telehealth?Location of provider rendering services:?{...} [address] [facility] [address] ?Location of patient:?address listed in demographics for today's visit ?Patient identification confirmed using:?Name, ?Telehealth method:?Telephone only. Patient not visible to care provider. ?Consent:?Patient verbally consented to treatment, Patient verbally consented to billing insurance company, Patient informed of any privacy concerns related to method of visit ?Total time spent with patient (mins)?15 ? The patient, an 78-year-old female, reported that she had recently contracted a gastrointestinal bug, which caused symptoms of diarrhea and nausea. She mentioned that she had picked up the bug from the hospital and had passed it on to her and daughter. The patient also mentioned that she had been feeling alright otherwise, with no pain or discomfort. She reported that her breathing was fine and she had been monitoring her heart rate with a heart monitor, which she had recently removed. The patient's noted that she had experienced two strokes in the past and had been showing signs of cognitive decline, including memory issues and a general slowing down. He also mentioned that she had been off her medication, Namenda, for about a week and a half due to a shortage. * ROS:?General/Constitutional:?Denies?pain,?only normal aches and pains.?Chills?denies.?Fatigue?admits.?Fever?denies.?ENT:?Decreased hearing?mild.?Respiratory:?Cough?denies.?Cardiovascular:?Chest pain with exertion?denies.?Dyspnea on exertion?denies.?Shortness of breath?denies.?Gastrointestinal:?Constipation?denies.?Decreased appetite?that is not associated with weight loss.?Admits?Diarrhea,?that was frequent.?Heartburn?denies.?Admits?Nausea,?denies.?Rectal bleeding?denies.?Vomiting?denies.?Hematology:?bruising?denies.?petechiae?denies.?Swollen glands?none have been noted.?Genitourinary:?Frequent urination?a small amount.?Musculoskeletal:?Muscle aches?denies.?Painful joints?denies.?Sciatica?denies.?Weakness?denies.?Skin:?Itching?denies.?Rash?denies.?Skin lesion(s)?denies.?Neurologic:?Difficulty speaking?denies.?Dizziness?denies.?Headache?denies.?Low back pain?denies.?Psychiatric:?Depressed mood?denies.? * Medical History:? * Surgical History:?lumbar dis c surgery 1994appendectomy age 5 zbigniew, Esme Hooks right eye [...] and is retired. She was born in [place], [place]. Her son is Armaan. Her [...] closes/itchyClindamycin HClPenicillinno[Allergies Verified] Objective: * Vitals:?Ht: 62, Wt:150, BMI: 27.43, Ht-cm: 157.48, Wt-k.04. Assessment: * Assessment: 1.?Cerebrovascular accident (CVA), unspecified [...] of one half of a pound per week.???4.?Lactose intolerance - E73.9???Notes :She will occasionally uses Lactaid. This problem is well controlled. She has not had a problem with abdominal distress or diarrhea or pain recently. She is avoiding lactose and dairy products.???5.?Mixed hyperlipidemia - E78.2???Notes :Her lipids are currently stable and controlled. No change in her regimen was needed today.???6.?Sleep apnea in adult - G47.30???Notes :At the reported request of neurology. She will be reevaluated for CPAP.???7.?Sinus arrhythmia - I49.8???Notes :She has just finished a 7 day Holter monitor to see if she is having episodes of atrial fibrillation.? We willl obtain a copy of the reading 1 is available.???8.?Overweight - E66.3???Notes :Her weight has been stable since her last visit at 150 pounds.? Her body mass index is 27.? ?We made a plan to lose weight at a rate of one half of a pound per week through a diet restricted in fat calories sodium unconcentrated sweets.???9.?Viral gastroenteritis - A08.4???Notes :SheAnd her have both an low-grade fevers and nausea and vomiting and diarrhea.? Recover from this.? There is a local community outbreak norovirus. She is currently stable and able to hydrate.??? Plan: * Treatment: 2.?Others? Continue Vitamin D-[address] Tablet, 25 MCG (1000 UT), 1 tablet, Orally, Once a day.?? * Procedure Codes:? * Preventive Medicine:? ??DM Care Plan:?Patient Lifestyle Goals?Patient wants to be able to manage diabetes without too much effort.?Treatment Goals?HbA1C < 7.0, Blood Sugars less than < 115.?Barriers?no barriers.?Self-Managment Goals?Work on weight loss, with a goal of losing 1 lb per week.? * Follow Up:?4 Weeks (Reason: ov) * Images: * Sign off status: Completed true * Provider:?Calvin Yousif MD Date:?02/18 Generated for Yanna campbell/Olivia/Sebasitting on:?05/12/2024 05:16 PM EDT History and Physical Notes * HPI (History of Present Illness) Category Sub-Category Detail Notes [facility] {...} [address] [facility] [address] Location of patient:: address listed in demographics for today's visit Patient identification confirmed using:: Name, Telehealth method:: Telephone only. [place] ent not visible to care provider. Consent:: Patient verbally c onsented to treatment, Patient verbally consented to billing insurance company, Patient informed of any privacy concerns related to method of visit Total time spent with patient (mins): 15
== END 2024-05-12 14:22 | disposition home or self-care (01) ==
LOC: HO.XRAY 14:21
PROVIDERS: Visit Provider Internal Medicine Medical Oncology
DX: R13.10 Dysphagia, unspecified (principal)
CPT/HCPCS: 74230

== ENCOUNTER → 2024-05-12 14:30 | Outpatient (BNV) | payer MEDICARE, SELFPAY | PROVIDERS: Visit Provider Radiology Diagnostic Radiology | DX: R13.10 Dysphagia, unspecified (principal) | CPT/HCPCS: 74230 ==